=== PATIENT | female | born 1950 | race Caucasian/White ===

== ENCOUNTER → 2019-05-25 | Outpatient (CLI) | payer MEDICARE, BC ==
--- NOTE | 2019-05-25 15:34 | XR ---
Right knee HISTORY: Pain, trauma 3 views the right knee Postop changes are noted to the proximal metaphysis of the right tibia, distal metaphysis of the righ t femur. Some mild joint space loss present in the medial compartment. Suprapatellar increased densit y compatible joint effusion. Questionable lucency involving the lateral aspect of the patella. No dis location. Some mild spurring present at the patellofemoral joint. IMPRESSION: Postop change, suspect some mild arthropathy. Difficult to exclude patellar fracture, alt ernate imaging may be of benefit, correlate for point tenderness.
== END | disposition home or self-care (01) ==
LOC: RADXRMAIN 10:16
PROVIDERS: ATTEND Internal Medicine
DX: M25.561 Pain in right knee (principal); Z98.890 Other specified postprocedural states

== ENCOUNTER → 2020-12-31 | Outpatient (CLI) | payer MEDICARE ==
--- NOTE | 2021-01-01 07:04 | CTL ---
EXAMINATION TYPE: CT Low Dose Lung DATE OF EXAM ORDERED: 12/31/2020 HISTORY: Long-term tobacco use. Lung cancer screening CT DLP: [address] CTDI: 2.41 mGy Automated exposure control for dose reduction was used. SCREENING VISIT: Initial study COMPARISON: None TECHNIQUE: Low dose computed tomography scan was performed through the chest at 1 mm thick sections a nd reconstructed images in the coronal plane at [address] DIAGNOSTIC QUALITY: Limited, but interpretable Slightly suboptimal due to body habitus. FINDINGS: LUNG NODULES: None. LUNGS: COPD: Severity: Moderate Fibrosis: Severity: Mild right basilar region Lymph nodes: None Other findings: Moderate calcification at level of aortic root. RIGHT PLEURAL SPACE: Effusion: None Calcification: None Thickening: None Pneumothorax: None LEFT PLEURAL SPACE: Effusion: None Calcification: None Thickening: None Pneumothorax: None HEART: Heart Size: Normal Coronary calcification: Moderate to severe Pericardial effusion: None OTHER FINDINGS: Upper abdomen: None. Bony thorax: Mild to moderate multilevel spurring Supraclavicular region: None. Other: None. IMPRESSION: Moderate emphysematous change greatest in the upper lungs without concerning pulmonary no dule CT LUNG RAD AND CT CHEST RECOMMENDATION: Lung-Rad 1 Negative: Continue annual screening with LDCT in 12 months. S Modifier (other clinically significant findings): S Moderate to severe coronary artery calcification should be correlated with additional cardiac risk fa ctors.
== END | disposition home or self-care (01) ==
LOC: RADCTMAIN 13:06
PROVIDERS: ATTEND Internal Medicine
DX: J43.9 Emphysema, unspecified (principal)
CPT/HCPCS: 71271